=== PATIENT | male | born 1975 | race Caucasian/White ===

== ENCOUNTER 2021-10-18 15:55 | Emergency (ER) | payer OTHER, SELFPAY ==
[2021-10-18 16:04] VITALS: BP 163/105; PULSE 97; RESP 20; TEMP 37.4; O2SAT 99
--- NOTE | 2021-10-18 16:12 | ED.EAR ---
HPI - Ear Problem General Chief complaint: Upper Respiratory Infection Stated complaint: sinus issues Time Seen by Provider: 10/18/21 16:12 Source: patient Mode of arrival: ambulatory Limitations: no limitations History of Present Illness HPI Narrative: Patient is a 46-year-old male patient who ambulated into the [facility]. Patient has a 3-day history of nasal congestion. He had sore throat for 1 day. It is now gone. Patient states he has pressure in his right ear and feels like sound is muffled. MD Complaint: decreased hearing Related Data Allergies Allergy/AdvReac Type Severity Reaction Status Date / Time No Known Allergies Allergy Verified 10/18/21 16:12 Review of Systems Review of Systems: CONSTITUTIONAL: Denies body aches, fever, chills, or sweats. EYES: Denies visual changes, redness, or discharge. ENT: Denies rhinorrhea, +congestion, sore throat, o+ right otalgia. CARDIOVASCULAR: Denies chest pain, palpitations, or edema. RESPIRATORY: Denies cough or dyspnea. GASTROINTESTINAL: Denies abdominal pain, nausea, vomiting, or diarrhea. GENITOURINARY: Denies dysuria or hematuria. SKIN: Denies rash, itching, or wounds. MUSCULOSKELETAL: Denies back pain, joint pain, or myalgia. NEUROLOGIC: Denies headache, numbness, tingling, or weakness. PSYCH: Denies depression or anxiety. All systems reviewed & are unremarkable except as noted in HPI and below PMFSH Comments At time of signature, I have reviewed and agree with nursing past medical, surgical, social and family history unless otherwise noted. Please see nursing chart for further information. There is no relevant family history pertinent to the presenting complaint Exam Narrative: GENERAL: Well-appearing, well-nourished, and in no acute distress. HEAD: Normocephalic, atraumatic. EYES: EOMI. No redness or drainage. Conjunctivae normal. ENT: Mucous membranes pink and moist. Nasal membranes erythematous with clear rhinorrhea. Right tympanic membrane is moderately bulging without erythema. Left tympanic membrane is mildly bulging with no erythema. Fluid is noted behind both tympanic membranes posterior pharynx is erythemic with mild edema and no exudate Uvula midline. NECK: Normal AROM. Supple. Right anterior cervical lymphadenopathy. CHEST: No respiratory distress. Clear to auscultation. MUSCULOSKELETAL: No bony tenderness. EXTREMITIES: Normal range of motion. No edema. SKIN: Warm, dry, no rash. Capillary refill normal. Normal skin turgor. NEURO: No focal deficits. Alert and oriented x3. Gait steady. PSYCH: Normal affect. No signs of depression or anxiety. Course Vital Signs Vital signs: Vital Signs Temperature 37.4 C 10/18/21 16:04 Pulse Rate 97 10/18/21 16:04 Respiratory Rate 20 10/18/21 16:04 Blood Pressure 163/105 H 10/18/21 16:04 Pulse Oximetry 99 10/18/21 16:04 Temperature 37.4 C 10/18/21 16:04 Pulse Rate 97 10/18/21 16:04 Respiratory Rate 20 10/18/21 16:04 Blood Pressure 163/105 H 10/18/21 16:04 Pulse Oximetry 99 10/18/21 16:04 Reviewed. Pt has been instructed to follow up with his PCP regarding his elevated blood pressure today. Medical Decision Making MDM Narrative Medical decision making narrative: Patient will be to diagnosed with serous otitis media. Patient has moderate amount of fluid behind both eardrums. No erythema is noted patient will be put on a short course of prednisone. Patient will add Zyrtec and Flonase to his daily regimen. Differential Diagnosis Differential Diagnosis: Otitis media, otitis externa, serous otitis media, eustachian tube dysfunction Medical Records Medical records reviewed: Yes I reviewed the external patient's medical records. Vital Signs Vital Signs: Vital Signs Temperature 37.4 C 10/18/21 16:04 Pulse Rate 97 10/18/21 16:04 Respiratory Rate 20 10/18/21 16:04 Blood Pressure 163/105 H 10/18/21 16:04 Pulse Oximetry 99 10/18/21 16:04 Temperature
== END 2021-10-18 16:28 | disposition home or self-care (01) ==
PROVIDERS: Emergency Provider Nurse Practitioner Family
DX: H65.93 Unspecified nonsuppurative otitis media, bilateral (principal)
CPT/HCPCS: 99213; G0463